=== PATIENT | female | born 1980 | race Caucasian/White ===

== ENCOUNTER 2022-04-10 12:43 | Emergency (ER) | payer BC ==
[~2022-04-10] VITALS: Ht 162.6 cm; Wt 60.0 kg
[2022-04-10] VITALS (23 sets, daily range): BP systolic 91–113; BP diastolic 47–62
[2022-04-10 14:22] LABS: HEMATOCRIT 37.1 % (37.0-47.0); HEMOGLOBIN 13.1 g/dl (12.0-16.0); IMMATURE GRANULOCYTES 0.3 % (0.0-5.0); MEAN CELL VOLUME 111.1 fL CALC (80.0-100.0); MEAN CORPUSCULAR HGB 39.2 pG CALC (26.0-32.0); MEAN CORPUSCULAR HGB CONC 35.3 g/dL CAL (32.0-36.0); NEUT# 8.66 thou/uL (2.00-7.15); RED BLOOD COUNT 3.34 mill/uL (4.20-5.60); RED CELL DISTRI WIDTH 16.6 % (11.5-15.5)
[2022-04-10 14:24] LABS: URINE BLOOD DIPSTICK NEGATIVE (NEGATIVE); URINE GLUCOSE - DIPSTICK 100 mg/dL (NEGATIVE); URINE KETONE 40 mg/dL (NEGATIVE); URINE LEUK ESTERASE NEGATIVE (NEGATIVE); URINE PH 6.5 (4.5-8.0); URINE PROTEIN - DIPSTICK 100 mg/dL (NEG-TRACE); URINE SPECIFIC GRAVITY 1.025; URINE UROBILINOGEN - DIPSTICK >=8.0 E.U./dL (0.2)
[2022-04-10 14:26] LABS: URINE BILIRUBIN - DIPSTICK LARGE (NEGATIVE); URINE COLOR BROWN; URINE NITRITE - DIPSTICK POSITIVE (Negative)
[2022-04-10 14:27] LABS: URINE BACTERIA FEW hpf; URINE EPITHELIAL CELLS MODERATE EPI/hpf (0-FEW); URINE MUCUS MODERATE hpf (NONE-FEW); URINE WBC 0-2 WBC/hpf (0-5)
[2022-04-10 14:39] LABS: ACT PARTIAL THROMBO TIME 39.4 SECONDS (20.0-32.5); INTERNATIONAL NORMALIZED RATIO 2.2 RATIO (0.7-1.3); PROTHROMBIN TIME 21.2 SECONDS (9.0-12.5)
[2022-04-10 14:45] LABS: ALBUMIN 3.5 g/dL (3.2-5.0); ALKALINE PHOSPHATASE 217 u/l (38-126); ANION GAP 19 (6-22 (CALC)); BUN 3 mg/dL (7-17); BUN/CREATININE RATIO 9 (12-20 (CALC)); CARBON DIOXIDE 23 mmol/l (22-30); CHLORIDE 96 mmol/l (95-108); CREATININE 0.4 mg/dL (0.5-1.0); GFR FOR AFR.AMER. > 60 ML/MIN (>=60 (CALC)); GFR OTHER RACES > 60 ML/MIN (>=60 (CALC)); LIPASE 228 u/l (23-300); POTASSIUM 3.7 mmol/l (3.5-5.1); SGOT/AST 189 u/l (14-36); SODIUM 134 mmol/l (137-146); TOTAL PROTEIN 7.9 g/dL (6.3-8.2)
[2022-04-10 14:55] LABS: BILIRUBIN, TOTAL 21.3 mg/dL (0.0-1.4)
== END 2022-04-10 23:07 | disposition short-term general hospital (02) | DRG 445 ==
LOC: ED 12:43
PROVIDERS: Emergency Medicine
DX: K81.0 Acute cholecystitis (principal); D68.4 Acquired coagulation factor deficiency; K92.2 Gastrointestinal hemorrhage, unspecified; K70.9 Alcoholic liver disease, unspecified
CPT/HCPCS: J2354; Q9967; S0164

== ENCOUNTER 2022-05-12 02:36 | Emergency (ER) | payer BC ==
[2022-05-12] VITALS (16 sets, daily range): BP systolic 94–104; BP diastolic 49–63
[~2022-05-12] VITALS: Ht 162.6 cm; Wt 66.4 kg
[2022-05-12 04:16] LABS: HEMATOCRIT 31.3 % (37.0-47.0); IMMATURE GRANULOCYTES 1.2 % (0.0-5.0); MEAN CELL VOLUME 114.2 fL CALC (80.0-100.0); MEAN CORPUSCULAR HGB 39.1 pG CALC (26.0-32.0); MEAN CORPUSCULAR HGB CONC 34.2 g/dL CAL (32.0-36.0); NEUT# 18.35 thou/uL (2.00-7.15); RED BLOOD COUNT 2.74 mill/uL (4.20-5.60); RED CELL DISTRI WIDTH 13.6 % (11.5-15.5)
[2022-05-12 04:20] LABS: HEMOGLOBIN 10.7 g/dl (12.0-16.0)
[2022-05-12 04:33] LABS: ALKALINE PHOSPHATASE 216 u/l (38-126); AMYLASE 63 u/l (30-110); BUN 12 mg/dL (7-17); BUN/CREATININE RATIO 26 (12-20 (CALC)); CHLORIDE 101 mmol/l (95-108); CREATININE 0.5 mg/dL (0.5-1.0); ETHYL ALCOHOL 0 mg/dl (0-30); GFR FOR AFR.AMER. > 60 ML/MIN (>=60 (CALC)); GFR OTHER RACES > 60 ML/MIN (>=60 (CALC)); LIPASE 1031 u/l (23-300); SGOT/AST 130 u/l (14-36); SODIUM 136 mmol/l (137-146)
[2022-05-12 04:34] LABS: POTASSIUM 3.3 mmol/l (3.5-5.1)
[2022-05-12 04:40] LABS: ALBUMIN 2.6 g/dL (3.2-5.0); ANION GAP 8 (6-22 (CALC)); BILIRUBIN, TOTAL 11.9 mg/dL (0.0-1.4); CARBON DIOXIDE 30 mmol/l (22-30); TOTAL PROTEIN 5.6 g/dL (6.3-8.2)
[2022-05-12 04:44] LABS: MYOGLOBIN 17 ng/mL (0 - 62)
[2022-05-12 06:09] LABS: URINE BLOOD DIPSTICK NEGATIVE (NEGATIVE); URINE COLOR YELLOW; URINE GLUCOSE - DIPSTICK NEGATIVE (NEGATIVE); URINE KETONE NEGATIVE (NEGATIVE); URINE LEUK ESTERASE NEGATIVE (NEGATIVE); URINE PROTEIN - DIPSTICK NEGATIVE (NEG-TRACE); URINE SPECIFIC GRAVITY <=1.005
[2022-05-12 06:23] LABS: URINE BILIRUBIN - DIPSTICK MODERATE (NEGATIVE); URINE NITRITE - DIPSTICK NEGATIVE (Negative)
[2022-05-12 06:33] LABS: INTERNATIONAL NORMALIZED RATIO 1.5 RATIO (0.7-1.3); PROTHROMBIN TIME 14.8 SECONDS (9.0-12.5)
== END 2022-05-12 07:11 | disposition short-term general hospital (02) | DRG 445 ==
LOC: ED 02:36
PROVIDERS: Emergency Medicine
DX: K81.0 Acute cholecystitis (principal); R18.8 Other ascites; K82.8 Other specified diseases of gallbladder; D72.829 Elevated white blood cell count, unspecified
CPT/HCPCS: J1956; Q9967; S0164

== ENCOUNTER 2022-05-22 11:32 | Emergency (ER) | payer BC ==
[~2022-05-22] VITALS: Ht 162.6 cm; Wt 80.0 kg
[2022-05-22] VITALS (17 sets, daily range): BP systolic 83–108; BP diastolic 40–63
[2022-05-22] MEDS ORDERED: ALDACTONE50 MG PO (11:59)
[2022-05-22] MEDS ORDERED: ARIPIPRAZOLE2 MG PO (12:08)
[2022-05-22] MEDS ORDERED: FUROSEMIDE20 MG PO (12:10)
[2022-05-22] MEDS ORDERED: MIRTAZAPINE15 MG PO (12:11)
[2022-05-22] MEDS ORDERED: MIDODRINE5 MG PO (12:11)
[2022-05-22] MEDS ORDERED: PROTONIX40 M2 PO (12:12)
[2022-05-22] MEDS ORDERED: PREDNISOLO15 MG/5 M1 PO (12:14)
[2022-05-22 12:15] LABS: GFR FOR AFR.AMER. > 60 ML/MIN (>=60 (CALC)); GFR OTHER RACES > 60 ML/MIN (>=60 (CALC))
[2022-05-22] MEDS ORDERED: XIFAXAN550 MG PO (12:15)
[2022-05-22] MEDS ORDERED: INDERAL10 MG PO (12:15)
[2022-05-22 12:37] LABS: ALKALINE PHOSPHATASE 198 u/l (38-126); ANION GAP 12 (6-22 (CALC)); BILIRUBIN, TOTAL 11.8 mg/dL (0.0-1.4); BUN 9 mg/dL (7-17); BUN/CREATININE RATIO 21 (12-20 (CALC)); CARBON DIOXIDE 27 mmol/l (22-30); CHLORIDE 103 mmol/l (95-108); CREATININE 0.5 mg/dL (0.5-1.0); GFR FOR AFR.AMER. > 60 ML/MIN (>=60 (CALC)); GFR OTHER RACES > 60 ML/MIN (>=60 (CALC)); LIPASE 1535 u/l (23-300); POTASSIUM 3.4 mmol/l (3.5-5.1); SGOT/AST 132 u/l (14-36); SODIUM 139 mmol/l (137-146); TOTAL PROTEIN 5.8 g/dL (6.3-8.2)
[2022-05-22 12:53] LABS: HEMATOCRIT 31.3 % (37.0-47.0); HEMOGLOBIN 10.7 g/dl (12.0-16.0); IMMATURE GRANULOCYTES 0.3 % (0.0-5.0); MEAN CORPUSCULAR HGB 38.6 pG CALC (26.0-32.0); MEAN CORPUSCULAR HGB CONC 34.2 g/dL CAL (32.0-36.0); NEUT# 8.69 thou/uL (2.00-7.15); RED BLOOD COUNT 2.77 mill/uL (4.20-5.60); RED CELL DISTRI WIDTH 14.2 % (11.5-15.5)
[2022-05-22 12:54] LABS: INTERNATIONAL NORMALIZED RATIO 1.5 RATIO (0.7-1.3); PROTHROMBIN TIME 14.2 SECONDS (9.0-12.5)
[2022-05-22 15:11] LABS: URINE BLOOD DIPSTICK NEGATIVE (NEGATIVE); URINE COLOR YELLOW; URINE GLUCOSE - DIPSTICK NEGATIVE (NEGATIVE); URINE KETONE NEGATIVE (NEGATIVE); URINE LEUK ESTERASE NEGATIVE (NEGATIVE); URINE PH 7.5 (4.5-8.0); URINE PROTEIN - DIPSTICK NEGATIVE (NEG-TRACE); URINE SPECIFIC GRAVITY <=1.005; URINE UROBILINOGEN - DIPSTICK 0.2 E.U./dL (0.2)
[2022-05-22 15:15] LABS: URINE BILIRUBIN - DIPSTICK MODERATE (NEGATIVE); URINE NITRITE - DIPSTICK NEGATIVE (Negative)
== END 2022-05-22 19:02 | disposition other institution (70) | DRG 446 ==
LOC: ED 11:32
PROVIDERS: Family Medicine; Nurse Practitioner
DX: K81.0 Acute cholecystitis (principal); K72.10 Chronic hepatic failure without coma; Z20.822 Contact with and (suspected) exposure to COVID-19; J45.909 Unspecified asthma, uncomplicated; F17.210 Nicotine dependence, cigarettes, uncomplicated
CPT/HCPCS: Q9967

== ENCOUNTER 2022-11-11 15:38 | Emergency (ER) | payer BC ==
[~2022-11-11] VITALS: Ht 152.4 cm; Wt 57.0 kg
[~2022-11-11 15:38] MED LIST: ALDACTONE25 MG PO; ALDACTONE50 MG PO; ALPRAZOLAM0.5 M2 PO; ARIPIPRAZOLE2 MG PO; CONSTULOSE10 GM/15 M; FUROSEMIDE20 MG PO; INDERAL10 MG PO; MIDODRINE5 MG PO; MIRTAZAPINE15 MG PO; PREDNISOLO15 MG/5 M1 PO; PROTONIX40 M2 PO; REMERON15 MG PO; VITAMI17 PO; XIFAXAN550 MG PO; ZINC100 M1 PO
[2022-11-11 15:50] VITALS: BP 116/70
[2022-11-11 16:00] VITALS: BP 121/68
[2022-11-11] MEDS ORDERED: DOXYCYCL HYC100 M4 PO (19:50)
[2022-11-11 19:57] VITALS: BP 116/70
== END 2022-11-11 20:04 | disposition home or self-care (01) | DRG 923 ==
LOC: ED 15:38
DX: T74.21XA Adult sexual abuse, confirmed, initial encounter (principal); J45.909 Unspecified asthma, uncomplicated; F17.200 Nicotine dependence, unspecified, uncomplicated

== ENCOUNTER 2023-06-27 10:17 | Emergency (ER) | payer OTHER ==
[2023-06-27] VITALS (21 sets, daily range): BP systolic 96–126; BP diastolic 46–79
[~2023-06-27] VITALS: Ht 152.4 cm; Wt 64.8 kg
[~2023-06-27 10:17] MED LIST changes: +CIPROFLOXACN500 MG PO; +CLINDAMYCIN300 M1 PO; +DOXYCYCL HYC100 M4 PO; +PROBIOTIC1 TAB PO
[2023-06-27 11:02] LABS: BASO% 1.1 % (0-3); EOS% 3.3 % (0-8); HEMATOCRIT 40.8 % (37.0-47.0); HEMOGLOBIN 14.5 g/dl (12.0-16.0); IMMATURE GRANULOCYTES 0.2 % (0.0-5.0); LYMPH% 18.3 % (15-41); MEAN CELL VOLUME 98.3 fL CALC (80.0-100.0); MEAN CORPUSCULAR HGB 34.9 pG CALC (26.0-32.0); MEAN CORPUSCULAR HGB CONC 35.5 g/dL CAL (32.0-36.0); MONO% 9.3 % (2-13); NEUT# 3.7 thou/uL (2.00-7.15); NEUT% 67.8 % (42-76); RED BLOOD COUNT 4.15 mill/uL (4.20-5.60); RED CELL DISTRI WIDTH 13.5 % (11.5-15.5)
[2023-06-27 11:12] LABS: URINE BILIRUBIN - DIPSTICK Negative (NEGATIVE); URINE BLOOD DIPSTICK Negative (NEGATIVE); URINE GLUCOSE - DIPSTICK Negative (NEGATIVE); URINE KETONE Negative (NEGATIVE); URINE LEUK ESTERASE Trace (NEGATIVE); URINE NITRITE - DIPSTICK Negative (Negative); URINE PROTEIN - DIPSTICK Negative (NEG-TRACE); URINE UROBILINOGEN - DIPSTICK 0.2 E.U./dL (0.2)
[2023-06-27 11:14] LABS: URINE COLOR Yellow
[2023-06-27 11:19] LABS: ALKALINE PHOSPHATASE 142 u/l (38-126); AMYLASE 34 u/l (30-110); ANION GAP 13 (6-22 (CALC)); BILIRUBIN, TOTAL 5.4 mg/dL (0.02-1.3); BUN 7 mg/dL (7-17); BUN/CREATININE RATIO 9 (12-20 (CALC)); CHLORIDE 107 mmol/l (95-108); CREATININE 0.7 mg/dL (0.5-1.0); GFR FOR AFR.AMER. > 60 ML/MIN (>=60 (CALC)); GFR OTHER RACES > 60 ML/MIN (>=60 (CALC)); LIPASE 207 u/l (23-300); POTASSIUM 3.7 mmol/l (3.5-5.1); SGOT/AST 105 u/l (14-36); SODIUM 140 mmol/l (137-146); TOTAL PROTEIN 7.2 g/dL (6.3-8.2)
[2023-06-27 11:21] LABS: CARBON DIOXIDE 24 mmol/l (22-30)
== END 2023-06-27 22:10 ==
LOC: ED 10:17
PROVIDERS: Family Medicine
DX: K80.41 Calculus of bile duct with cholecystitis, unspecified, with obstruction (principal); K74.60 Unspecified cirrhosis of liver; Z72.0 Tobacco use

== ENCOUNTER 2024-01-27 19:36 | Emergency (ER) | payer OTHER ==
[2024-01-27] VITALS (20 sets, daily range): BP systolic 80–130; BP diastolic 26–68
[~2024-01-27] VITALS: Ht 152.4 cm; Wt 67.0 kg
[2024-01-27] MEDS ORDERED: OCTREOTIDE ACETATE 100 MCG/VIAL SDV IV ONE (19:50)
[2024-01-27] MEDS ORDERED: cefTRIAXone SODIUM 2 GM in SODIUM CHLORIDE 0.9% 100 ML IV ONE (19:50)
[2024-01-27] MEDS ORDERED: OCTREOTIDE ACETATE IV PRN (19:55)
[2024-01-27] MEDS ORDERED: SODIUM CHLORIDE 0.9% IV PRN (19:55)
[2024-01-27] MEDS ORDERED: SODIUM CHLORIDE 0.9% 1,000 ML IV SCH (19:55)
[2024-01-27] MEDS ORDERED: SODIUM CHLORIDE 0.9% 1,000 ML IV ONE (20:00)
[2024-01-27] MEDS ORDERED: HYDROmorphone HCL 2 MG/AMP IV ONE (20:00)
[2024-01-27] MEDS ORDERED: ONDANSETRON HCl 4 MG/2 ML SDV IV ONE (20:00)
[2024-01-27] MEDS ORDERED: SODIUM CHLORIDE 0.9% IV ONE (20:20)
[2024-01-27] MEDS ORDERED: OCTREOTIDE ACETATE IV ONE (20:20)
[2024-01-27 20:32] LABS: BASO% 0.4 % (0-3); EOS% 0.6 % (0-8); IMMATURE GRANULOCYTES 0.6 % (0.0-5.0); LYMPH% 9.3 % (15-41); MEAN CELL VOLUME 103.4 fL CALC (80.0-100.0); MEAN CORPUSCULAR HGB 36.7 pG CALC (26.0-32.0); MEAN CORPUSCULAR HGB CONC 35.5 g/dL CAL (32.0-36.0); MONO% 7.6 % (2-13); NEUT# 4.2 thou/uL (2.00-7.15); NEUT% 81.5 % (42-76); RED BLOOD COUNT 2.67 mill/uL (4.20-5.60); RED CELL DISTRI WIDTH 14.3 % (11.5-15.5)
[2024-01-27 20:49] LABS: CREATININE 0.7 mg/dL (0.5-1.0); ETHYL ALCOHOL 248 mg/dl (0-30); TOTAL PROTEIN 7.4 g/dL (6.3-8.2)
[2024-01-27 20:50] LABS: POTASSIUM 2.7 mmol/l (3.5-5.1)
[2024-01-27 20:52] LABS: ALBUMIN 2.8 g/dL (3.2-5.0); BILIRUBIN, TOTAL 21.5 mg/dL (0.02-1.3)
[2024-01-27 20:55] LABS: HEMATOCRIT 27.6 % (37.0-47.0); HEMOGLOBIN 9.8 g/dl (12.0-16.0)
[2024-01-27] MEDS ORDERED: POTASSIUM CHLORIDE 20 MEQ/TAB PO ONE (20:55)
[2024-01-27] MEDS ORDERED: LORazepam 2 MG/ML IV ONE (20:55)
[2024-01-27 20:58] LABS: ACT PARTIAL THROMBO TIME 47.4 SECONDS (20.0-32.5); INTERNATIONAL NORMALIZED RATIO 2.4 RATIO (0.7-1.3); PROTHROMBIN TIME 22.2 SECONDS (9.0-12.5)
[2024-01-27 21:14] LABS: URINE BLOOD DIPSTICK Negative (NEGATIVE); URINE CLARITY Slightly Cloudy; URINE GLUCOSE - DIPSTICK 100 mg/dL (NEGATIVE); URINE KETONE Trace mg/dL (NEGATIVE); URINE LEUK ESTERASE Negative (Negative); URINE PROTEIN - DIPSTICK Trace mg/dL (NEG-TRACE); URINE SPECIFIC GRAVITY 1.015; URINE UROBILINOGEN - DIPSTICK >=8.0 E.U./dL (0.2)
[2024-01-27 21:16] LABS: URINE COLOR Amber; URINE NITRITE - DIPSTICK Positive (Negative)
[2024-01-27 21:22] LABS: URINE BACTERIA MANY hpf; URINE SQUAMOUS EPITHELIAL CELL MODERATE EPI/hpf (0-FEW)
[2024-01-27] MEDS ORDERED: OCTREOTIDE ACETATE 500 MCG/ML ONE (21:22)
[2024-01-27] MEDS ORDERED: OCTREOTIDE ACETATE 100 MCG/VIAL SDV ONE (21:22)
== END 2024-01-27 22:20 | disposition short-term general hospital (02) | DRG 872 ==
LOC: ED 19:36
PROVIDERS: Emergency Medicine
DX: A41.9 Sepsis, unspecified organism (principal); K92.0 Hematemesis; D68.4 Acquired coagulation factor deficiency; F10.231 Alcohol dependence with withdrawal delirium; F10.221 Alcohol dependence with intoxication delirium; J45.909 Unspecified asthma, uncomplicated; F17.200 Nicotine dependence, unspecified, uncomplicated; K70.31 Alcoholic cirrhosis of liver with ascites; Y90.8 Blood alcohol level of 240 mg/100 ml or more; Z88.0 Allergy status to penicillin; Z88.1 Allergy status to other antibiotic agents; Z88.5 Allergy status to narcotic agent
CPT/HCPCS: J2060; J2354; J2470